=== PATIENT | female | born 1930 | race African-American/Black ===

== ENCOUNTER 2020-12-08 12:15 | Emergency (ER) | payer OTHER, MEDICAID ==
[~2020-12-08] VITALS: Ht 172.7 cm; Wt 91.0 kg
[2020-12-08 13:22] LABS: BASOPHILS % 0.3 % (0.0-2.0); EOSINOPHILS % 1.4 % (0.0-5.0); HEMATOCRIT. 43.4 % (36.0-48.0); HEMOGLOBIN. 14.3 g/dL (12.0-16.0); LYMPHOCYTES % 24.3 % (20.0-50.0); MEAN CORPUSCULAR HEMOGLOBIN 29.9 pg (28.0-32.0); MEAN CORPUSCULAR VOLUME 90.7 fL (81.0-99.0); MEAN PLATELET VOLUME 9.6 fl (7.4-10.4); MONOCYTES % 8.7 % (2.0-8.0); NEUTROPHILS % 65.3 % (40.0-76.0); PLATELET 178 x1000/uL (130-400); RED BLOOD CELL COUNT 4.79 mill/uL (4.2-5.4); RED CELL DISTRIBUTION WIDTH 13.7 % (11.6-14.6)
[2020-12-08 13:27] LABS: CHLORIDE 108 mEq/L (98-107)
[2020-12-08 13:29] LABS: INR 1.1; PROTHROMBIN TIME 11.3 sec (9.6-11.0)
[2020-12-08 13:34] LABS: ETHANOL BLOOD < 10 mg/dL; LDL CHOLESTEROL 59 mg/dL (5-100)
[2020-12-08] MEDS ORDERED: IOHEXOL-350 100 ML BOTTLE ONE (13:39)
[2020-12-08 15:00] VITALS: BP 145/60
== END 2020-12-08 15:55 | disposition home or self-care (01) ==
LOC: ER 12:15
DX: S09.8XXA Other specified injuries of head, initial encounter (principal); R29.810 Facial weakness; I45.10 Unspecified right bundle-branch block; R94.31 Abnormal electrocardiogram [ECG] [EKG]; E78.00 Pure hypercholesterolemia, unspecified; G30.9 Alzheimer's disease, unspecified; F02.80 Dementia in other diseases classified elsewhere, unspecified severity, without behavioral disturbance, psychotic disturbance, mood disturbance, and anxiety; W01.0XXA Fall on same level from slipping, tripping and stumbling without subsequent striking against object, initial encounter; Y93.9 Activity, unspecified; Y92.9 Unspecified place or not applicable; Z88.0 Allergy status to penicillin; Z86.73 Personal history of transient ischemic attack (TIA), and cerebral infarction without residual deficits
CPT/HCPCS: 36415; 70450; 70496; 70498; 71045; 80053; 80320; 83721; 84484; 85025; 85610; 93005; 99285; Q9967; G0480

== ENCOUNTER 2021-05-01 15:44 | Inpatient (IN) | payer OTHER, MEDICAID ==
[~2021-05-01] VITALS: Ht 167.6 cm; Wt 106.3 kg
[2021-05-01 16:58] LABS: INR 1.1; PROTHROMBIN TIME 11.5 sec (9.6-11.0)
[2021-05-01 18:52] LABS: CHLORIDE 113 mEq/L (98-107)
[2021-05-01 18:53] LABS: BASOPHILS % 0.3 % (0.0-2.0); EOSINOPHILS % 0.9 % (0.0-5.0); HEMATOCRIT. 41.7 % (36.0-48.0); LYMPHOCYTES % 24.9 % (20.0-50.0); MEAN CORPUSCULAR HEMOGLOBIN 30.8 pg (28.0-32.0); MEAN CORPUSCULAR VOLUME 91.8 fL (81.0-99.0); MEAN PLATELET VOLUME 10.2 fl (7.4-10.4); MONOCYTES % 8.3 % (2.0-8.0); NEUTROPHILS % 65.6 % (40.0-76.0); PLATELET 122 x1000/uL (130-400); RED BLOOD CELL COUNT 4.54 mill/uL (4.2-5.4); RED CELL DISTRIBUTION WIDTH 13.4 % (11.6-14.6)
[2021-05-01 18:58] LABS: ETHANOL BLOOD < 10 mg/dL
[2021-05-01] MEDS ORDERED: MAGNESIUM/ALUMINUM HYDROXIDE/SIMETHICONE 30ML UDC PO PRN (21:15)
[2021-05-01] MEDS ORDERED: HYDROCODONE/ACETAMINOPHEN 5/325MG TABLET PO PRN (21:15)
[2021-05-01] MEDS ORDERED: GUAIFENESIN 200MG/10ML SUGAR FREE UDC PO PRN (21:15)
[2021-05-01] MEDS ORDERED: ACETAMINOPHEN 325MG TABLET PO PRN ×2 (21:15)
[2021-05-01] MEDS ORDERED: ONDANSETRON HCL 4MG/2ML INJ IV PRN (21:15)
[2021-05-01] MEDS ORDERED: ENOXAPARIN 40MG/0.4ML SYR SUBCUT SCH (21:15)
[2021-05-01] MEDS ORDERED: CLONIDINE 0.1MG TABLET PO PRN (21:15)
[2021-05-01 22:01] LABS: CLARITY URINE CLOUDY (CLEAR); COLOR URINE YELLOW (YELLOW); KETONES URINE TRACE (NEGATIVE); LEUKOCYTE ESTERASE URINE NEGATIVE (NEGATIVE); NITRITE URINE POSITIVE (NEGATIVE); OCCULT BLOOD URINE 1+ (NEGATIVE); PH URINE 5.5 (4.5-8.0); PROTEIN URINE TRACE (NEGATIVE); UROBILINOGEN URINE 0.2 E.U./dL (0.2-1.0)
[2021-05-01] MEDS: SODIUM CHLORIDE 0.45% 1,000 ML IV SCH (22:02)
[2021-05-01] MEDS: ENOXAPARIN 30MG/0.3ML SYR SUBCUT SCH (22:04)
[2021-05-01] MEDS ORDERED: IOHEXOL-350 100 ML BOTTLE ONE (23:19)
[2021-05-02 01:27] VITALS: BP 153/69
[2021-05-02 04:00] VITALS: BP 125/57
[2021-05-02 07:09] LABS: BASOPHILS % 0.2 % (0.0-2.0); EOSINOPHILS % 0.8 % (0.0-5.0); HEMATOCRIT. 38.9 % (36.0-48.0); HEMOGLOBIN. 13.4 g/dL (12.0-16.0); MEAN CORPUSCULAR HEMOGLOBIN 30.7 pg (28.0-32.0); MEAN CORPUSCULAR VOLUME 89.4 fL (81.0-99.0); MEAN PLATELET VOLUME 10.3 fl (7.4-10.4); MONOCYTES % 8.9 % (2.0-8.0); NEUTROPHILS % 65.1 % (40.0-76.0); PLATELET 147 x1000/uL (130-400); RED BLOOD CELL COUNT 4.35 mill/uL (4.2-5.4); RED CELL DISTRIBUTION WIDTH 13.1 % (11.6-14.6)
[2021-05-02 07:33] LABS: CHLORIDE 111 mEq/L (98-107)
[2021-05-02 07:39] LABS: PHOSPHORUS 2.4 mg/dL (2.5-4.9)
[2021-05-02 07:41] LABS: LDL CHOLESTEROL 54 mg/dL (5-100)
[2021-05-02 07:42] LABS: HDL CHOLESTEROL 45 mg/dL (40-59)
[2021-05-02 08:00] VITALS: BP 109/48
[2021-05-02 08:25] LABS: VITAMIN B12 SERUM 1439 pg/mL (211-911)
[2021-05-02 08:46] LABS: FOLIC ACID (FOLATE) SERUM > 20.00 ng/mL (>5.38)
[2021-05-02] MEDS: ASPIRIN 81MG EC TABLET PO SCH (09:00)
[2021-05-02] MEDS: SODIUM CHLORIDE 0.45% 1,000 ML IV SCH ×2 (09:20→18:00)
[2021-05-02 12:00] VITALS: BP 123/60
[2021-05-02 16:00] VITALS: BP 120/65
[2021-05-02 20:00] VITALS: BP 134/56
[2021-05-02] MEDS: ENOXAPARIN 30MG/0.3ML SYR SUBCUT SCH (22:11)
[2021-05-03] VITALS: BP 127/51
[2021-05-03 04:00] VITALS: BP 162/73
[2021-05-03] MEDS: SODIUM CHLORIDE 0.45% 1,000 ML IV SCH ×2 (05:02→13:07)
[2021-05-03 07:44] LABS: BASOPHILS % 0.2 % (0.0-2.0); EOSINOPHILS % 0.9 % (0.0-5.0); HEMATOCRIT. 40.8 % (36.0-48.0); HEMOGLOBIN. 13.9 g/dL (12.0-16.0); LYMPHOCYTES % 22.3 % (20.0-50.0); MEAN CORPUSCULAR HEMOGLOBIN 30.3 pg (28.0-32.0); MEAN PLATELET VOLUME 10.5 fl (7.4-10.4); MONOCYTES % 10.9 % (2.0-8.0); NEUTROPHILS % 65.7 % (40.0-76.0); PLATELET 138 x1000/uL (130-400); RED BLOOD CELL COUNT 4.59 mill/uL (4.2-5.4); RED CELL DISTRIBUTION WIDTH 13.4 % (11.6-14.6)
[2021-05-03 08:00] VITALS: BP 111/58
[2021-05-03] MEDS: ASPIRIN 81MG EC TABLET PO SCH (08:31)
[2021-05-03] MEDS: MEMANTINE HCL 5MG TABLET PO SCH ×2 (08:31→22:04)
[2021-05-03 09:41] LABS: CHLORIDE 110 mEq/L (98-107)
[2021-05-03 09:45] LABS: PHOSPHORUS 2.7 mg/dL (2.5-4.9)
[2021-05-03 12:00] VITALS: BP 115/48
[2021-05-03] MEDS: FLUOXETINE HCL 10 MG CAPSULE PO SCH (13:07)
[2021-05-03 16:00] VITALS: BP 138/53
[2021-05-03 20:00] VITALS: BP 128/56
[2021-05-03] MEDS: ATORVASTATIN CALCIUM 20MG TABLET PO SCH (22:04)
[2021-05-03] MEDS: ENOXAPARIN 30MG/0.3ML SYR SUBCUT SCH (22:05)
[2021-05-04] VITALS: BP 110/56
[2021-05-04] MEDS: SODIUM CHLORIDE 0.45% 1,000 ML IV SCH ×3 (01:42→21:33)
[2021-05-04 04:00] VITALS: BP 109/54
[2021-05-04 08:00] VITALS: BP 141/59
[2021-05-04] MEDS: ASPIRIN 81MG EC TABLET PO SCH ×2 (09:00→09:54)
[2021-05-04] MEDS: MEMANTINE HCL 5MG TABLET PO SCH ×2 (09:54→21:30)
[2021-05-04 12:00] VITALS: BP 122/50
[2021-05-04] MEDS: FLUOXETINE HCL 10 MG CAPSULE PO SCH (12:37)
[2021-05-04 16:00] VITALS: BP 120/60
[2021-05-04 20:00] VITALS: BP 117/53
[2021-05-04] MEDS: ATORVASTATIN CALCIUM 20MG TABLET PO SCH (21:30)
[2021-05-04] MEDS: ENOXAPARIN 30MG/0.3ML SYR SUBCUT SCH (21:30)
[2021-05-05] VITALS: BP 108/43
[2021-05-05] MEDS ORDERED: HYDROXYZINE 25MG TABLET PO PRN (01:45)
[2021-05-05 04:00] VITALS: BP 121/77
[2021-05-05] MEDS: SODIUM CHLORIDE 0.45% 1,000 ML IV SCH ×2 (05:16→16:10)
[2021-05-05 08:00] VITALS: BP 115/75
[2021-05-05] MEDS: MEMANTINE HCL 5MG TABLET PO SCH (09:06)
[2021-05-05] MEDS: ASPIRIN 81MG EC TABLET PO SCH (09:06)
[2021-05-05] MEDS ORDERED: TOPUD PO (09:55)
[2021-05-05] MEDS ORDERED: FLUO10CA28 PO (09:55)
[2021-05-05] MEDS ORDERED: ATOR20TA PO (09:55)
[2021-05-05] MEDS ORDERED: ASPI-1406 PO (09:55)
[2021-05-05] MEDS ORDERED: MEMA5TAB7 PO (09:55)
[2021-05-05 12:00] VITALS: BP 122/50
[2021-05-05] MEDS: FLUOXETINE HCL 10 MG CAPSULE PO SCH (12:09)
[2021-05-05] MEDS ORDERED: ENOXAPARIN 40MG/0.4ML SYR SUBCUT SCH (14:00)
[2021-05-05] MEDS ORDERED: NALOXONE HCL 0.4MG/ML VIAL IV PRN (14:00)
[2021-05-05 15:24] VITALS: BP 118/69
[2021-05-05 16:00] VITALS: BP 119/59
== END 2021-05-05 17:30 | disposition hospice, home (50) | DRG 65 ==
LOC: ER 15:44 → MICUSO 19:42 → EDBEDREQSVC 19:50 → EDBEDREQ 19:50 → EDBEDREQTM 19:50 → SUPCPDRO 20:54 → 5WST 05-02 01:10
PROVIDERS: ADMIT Internal Medicine; ATTEND Internal Medicine
DX: I63.9 Cerebral infarction, unspecified (principal); E44.1 Mild protein-calorie malnutrition; R29.810 Facial weakness; R47.81 Slurred speech; E78.00 Pure hypercholesterolemia, unspecified; E78.5 Hyperlipidemia, unspecified; E66.01 Morbid (severe) obesity due to excess calories; I10 Essential (primary) hypertension; Z20.822 Contact with and (suspected) exposure to COVID-19; F03.90 Unspecified dementia, unspecified severity, without behavioral disturbance, psychotic disturbance, mood disturbance, and anxiety; Z79.82 Long term (current) use of aspirin; Z87.891 Personal history of nicotine dependence; Z68.37 Body mass index [BMI] 37.0-37.9, adult; Z88.0 Allergy status to penicillin; Z88.8 Allergy status to other drugs, medicaments and biological substances; R32 Unspecified urinary incontinence; R63.30 Feeding difficulties, unspecified; R53.81 Other malaise; Z86.73 Personal history of transient ischemic attack (TIA), and cerebral infarction without residual deficits
CPT/HCPCS: 36415; 70496; 70498; 70551; 71045; 80048; 80053; 80061; 80305; 80320; 81003; 82607; 82746; 82962; 83036; 83721; 83735; 84100; 84443; 84484; 85025; 87426; 92610; 93005; 93306; 97162; 97166; 99291; J1650; Q9967; G0480